=== PATIENT | male | born 1945 | race Caucasian/White ===

== ENCOUNTER → 2018-03-31 08:20 | Outpatient (CLI) | payer MEDICARE, SELFPAY ==
--- NOTE | 2018-03-31 | DI.ECHO.S_ITS ---
[facility] +---------+ : : [address] : [place] : : : : [id number] : : : : Phone: [phone]+ Echocardiogram Report + + :Name: DARY BRADLEY Study Date: 03/31/2018 Height: 68 in : :[facility] Exam Location: [facility] Weight: 224 lb : : Gender: Male BSA: 2.1 m2 : :: 1945 Age: 73 yrs BP: 158/80 mmHg: :Reason For Study: Ascending Aorta Dilation : :Ordering Physician: Brittni : :Aleks Performed By: Zaria Acosta : :Referring: BRITTNI CHINCHILLA : + + Interpretation Summary The patient was in normal sinus rhythm during the exam. The patient had frequent PACs during the exam. The left ventricle is normal in size. The ejection fraction is estimated to be 55-60%. There has been no significant change in LV EF since the previous study. The right ventricle is normal in size and function. There is mild mitral regurgitation. There is mild aortic regurgitation. Compared to the prior echo study, there has been no change in the severity of aortic regurgitation. Ao root diam: 4.6 cm asc Aorta Diam: 4.5 cm Ao Arch Diam (Prox Trans): 4.0 cm In 02/2017:Ao root diam: 4.7 cm Aortic Jxn: 3.7 cm asc Aorta Diam: 4.2 cm Ao Arch Diam (Prox Trans): 3.4 cm Procedure: A two-dimensional transthoracic echocardiogram with color flow and Doppler was performed. The study quality was technically adequate. Comparison is made with the echocardiogram of 02/18/2017. The patient was in normal sinus rhythm during the exam. The patient had frequent PACs during the exam. The patient had a bundle branch block rhythm during the exam. Left Ventricle: The left ventricle is normal in size. Left ventricular wall thickness is normal. There is no thrombus. The ejection fraction is estimated to be 55-60%. There has been no significant change since the previous study. Septal motion is consistent with conduction abnormality. There is apical septal wall hypokinesis. MV E/A: 1.4 Med Peak E' Olaf: 6.4 cm/sec E/E' med: 13.7. Right Ventricle: The right ventricle is normal in size and function. Atria: The left atrium is severely dilated. The left atrium has significantly increased in size since the prior echo exam. The right atrium is normal in size. The interatrial septum is intact with no evidence for an atrial septal defect. Mitral Valve: The mitral valve leaflets appear mildly thickened, but open well. There is mild mitral annular calcification. There is mild mitral regurgitation. Aortic Valve: The aortic valve is trileaflet. There is mild aortic valve sclerosis. There is no aortic valve stenosis. There is mild aortic regurgitation. Compared to the prior echo study, there has been no change in the severity of aortic regurgitation. Tricuspid Valve: The tricuspid valve is normal in structure and function. There is a trace or physiologic amount of tricuspid regurgitation. Pulmonary artery pressures cannot be estimated because of the lack of a measurable TR jet velocity. Pulmonic Valve: The pulmonic valve is not well seen, but is grossly normal. There is a trace or physiologic amount of pulmonic regurgitation. Great Vessels: The aortic root is moderately dilated. The ascending aorta is moderately enlarged. The aortic arch is moderately enlarged. The IVC is of normal diameter and collapses greater than 50% with a sniff. This suggests a low right atrial pressure of 3 mm Hg. Pericardium/ Pleura There is no pericardial effusion. There is no pleural effusion. MMode/2D Measurements & Calculations LVIDd: 5.5 cm LVOT diam: 2.6 cm LVIDs: 3.4 cm Ao root diam: 4.6 cm FS: 39.3 % asc Aorta Diam: 4.5 cm IVSd: 0.99 cm Ao Arch Diam (Prox Trans): 4.0 cm LVPWd: 1.0 cm LV burger. diameter/BSA (cm/m^2): 2.6 LV sys. diameter/BSA (cm/m^2): 1.6 LA A2 area: 25.5 cm2 RA long axis: 5.6 cm LA A4 area: 35.0 cm2 RA area: 16.1 cm2 LA length (vol): 6.2 cm RA vol: 39.2 ml LA vol: 122.2 ml RA : 18.3 ml/m2 LA vol index: 57.0 ml/m2 TAPSE: 2.0 cm Doppler Measurements & Calculations Ao V2 max: 167.4 cm/sec LVOT Max Olaf: 122.1 cm/sec Ao V2 mean: 110.1 cm/sec LV V1 max P.0 mmHg Ao max P.2 mmHg LV V1 VTI: 28.5 cm Ao mean P.4 mmHg SANDRA(I,D): 4.4 cm2 Ao V2 VTI: 35.0 cm SANDRA(V,D): 4.0 cm2 sev ratio: 0.81 SANDRA indexed to BSA (cm^2/m^2): 2.1 MV E max olaf: 87.9 cm/sec SV(LVOT): 154.9 ml MV A max olaf: 61.5 cm/sec MV E/A: 1.4 Med Peak E' Olaf: 6.4 cm/sec E/E' med: 13.7 Lat Peak E' Olaf: 10.5 cm/sec E/E' lat: 8.3 E/e' average: 11.0 MV dec time: 0.17 sec Reading Physician:DARÍO
== END ==
PROVIDERS: PCP Internal Medicine; Visit Provider Internal Medicine Cardiovascular Disease
DX: I08.0 Rheumatic disorders of both mitral and aortic valves (principal); I77.810 Thoracic aortic ectasia
CPT/HCPCS: 93306

== ENCOUNTER → 2020-04-29 07:41 | Outpatient (CLI) | payer MEDICARE, SELFPAY ==
[2020-04-29] MEDS: COVID-19 VACC(MODERNA-1)/PF 100 MCG/0.5 ML VIAL IM (07:53)
== END ==
PROVIDERS: PCP Internal Medicine; Visit Provider Internal Medicine
DX: Z23 Encounter for immunization (principal)
CPT/HCPCS: 0011A; 91301

== ENCOUNTER → 2020-05-27 07:38 | Outpatient (CLI) | payer MEDICARE, SELFPAY ==
[2020-05-27] MEDS: COVID-19 VACC #2, MRNA(MOD) 100 MCG/0.5 ML VIAL IM (07:43)
== END ==
PROVIDERS: PCP Internal Medicine; Visit Provider Internal Medicine
DX: Z23 Encounter for immunization (principal)
CPT/HCPCS: 0012A; 91301